=== PATIENT | male | born 1965 | race Caucasian/White ===

== ENCOUNTER 2020-03-11 14:27 | Emergency (ER) | payer SELFPAY ==
[2020-03-11] MEDS ORDERED: ACETAMINOPHEN 325 MG TABLET PO ONE (14:44)
--- NOTE | 2020-03-11 14:46 | ER Document Report ---
HPI - HPI Patient complains to provider of: Fall Time Seen by Provider: 03/11/20 14:38 Onset: Other - 4 days ago Onset/Duration: Persistent Quality of pain: Achy Pain Level: 4 Context: Patient states he slipped on sand in [facility] 4 days ago and fell. Patient states that he injured his right elbow and right shoulder. Patient states initially had right hip pain and right hand pain, although the hip and hand are feeling better at this time. Patient states he did hit his head as well. Patient denies any nausea or vomiting. Patient does not recall any specific lo ss of consciousness. Patient states that the pain worsened today while he was at work limiting his ability to work. Patient does report a history of chronic bilateral shoulder pain and problems with the rotator cuff. Patient reports getting an injection in the shoulder about 4 months ago. Associated Symptoms: denies: Fever, Headache Exacerbated by: Movement Relieved by: Denies Similar symptoms previously: Yes - Right shoulder pain Recently seen / treated by doctor: No - ROS ROS below otherwise negative: Yes Systems Reviewed and Negative: Yes All other systems reviewed and negative - CONSTITUTIONAL Constitutional: DENIES: Fever - NEURO Neurology: DENIES: Weakness - GASTROINTESTINAL Gastrointestinal: DENIES: Nausea - MUSCULOSKELETAL Musculoskeletal: REPORTS: Extremity pain - Right shoulder, right elbow. DENIES: Back Pain, Neck Pain - DERM Skin Color: Normal Skin Problems: None Past Medical History - General Information source: Patient - Social History Smoking Status: Current Every Day Smoker Frequency of alcohol use: None Drug Abuse: None Occupation: Construction Family History: Reviewed & Not Pertinent - Medical History Medical History: Negative Past Surgical History: Reports: Hx Myringotomy Vertical Provider Document - CONSTITUTIONAL Agree With Documented VS: Yes Exam Limitations: No Limitations General Appearance: WD/WN, No Apparent Distress - HEENT HEENT: Atraumatic, Normocephalic - NECK Neck: Normal Inspection, Supple. negative: Lymphadenopathy-Left, Lymphadenopathy-Right - RESPIRATORY Respiratory: Breath Sounds Normal, No Respiratory Distress - CARDIOVASCULAR Cardiovascular: Regular Rate, Regular Rhythm, No Murmur Pulses: Normal: Radial - MUSCULOSKELETAL/EXTREMETIES Musculoskeletal/Extremeties: MAEW, Tender - Tenderness over superior aspect of humeral head, no dislocation or deformity to right shoulder. Notes: Right elbow tenderness over medial and lateral epicondyle, no ecchymosis, no deformity, no swelling - NEURO Level of Consciousness: Awake, Alert, Appropriate Motor/Sensory: No Motor Deficit, No Sensory Deficit - DERM Integumentary: Warm, Dry, No Rash Course - Re-evaluation Re-evalutation: 03/11/20 17:11 Patient without any acute fracture noted on CT scan of the elbow, will immobilize and refer to orthopedics for further management at this time. - Vital Signs Vital signs: Temp Pulse Resp BP Pulse Ox 98.7 F 90 18 125/77 98 03/11/20 14:32 03/11/20 14:32 03/11/20 14:32 03/11/20 14:32 03/11/20 14:32 - Diagnostic Test Radiology reviewed: Image reviewed, Reports reviewed Procedures - Immobilization Right Shoulder Pre-Proc Neuro Vasc Exam: Normal Immobilizer type: Sling Performed by: PCT Post-Proc Neuro Vasc Exam: Normal Alignment checked and good: Yes Discharge - Discharge Clinical Impression: Fall Qualifiers: Encounter type: initial encounter Qualified Code(s): W19.XXXA - Unspecified fall, initial encounter Sprain of right shoulder Qualifiers: Encounter type: initial encounter Shoulder sprain type: unspecified sprain Qualified Code(s): S43.401A - Unspecified sprain of right shoulder joint, initial encounter Sprain of elbow, right Qualifiers: Encounter type: initial encounter Qualified Code(s): S53.401A - Unspecified sprain of right elbow, initial encounter Condition: Stable Disposition: HOME, SELF-CARE Instructions: Acetaminophen, Ice & Elevation ([facility]), Sprain ([facility]), Temporary Sling ([facility]) Additional Instructions: Return immediately for any new or worsening symptoms Followup with your primary care provider, call tomorrow to make a followup appointment Wear sling while awake only for the next 4 to 5 days and then remove. Follow-up with orthopedics for further evaluation, call tomorrow to make a follow-up appointment Prescriptions: Lidocaine [Lidoderm 5% (700 mg) Transdermal Patch] 1 patch TP DAILY PRN #10 adh..patch PRN Reason: Naproxen [Naprosyn 250 Nmg Tablet] 1 tab PO BID #14 tablet Forms: Return to Work Referrals: [facility]) [Provider Group] - Follow up tomorrow
--- NOTE | 2020-03-11 15:51 | RADIOLOGY REPORT (SQ) ---
EXAM DESCRIPTION: ELBOW RIGHT OVER 2 VIEWS IMAGES COMPLETED DATE/TIME: 03/11/2020 3:43 pm REASON FOR STUDY: fall, shoulder, elbow injury COMPARISON: None. NUMBER OF VIEWS: Four views. TECHNIQUE: AP, lateral, and both oblique radiographic images acquired of the right elbow. LIMITATIONS: Nonstandard radiographic positioning, patient could not straighten the arm for AP and o blique images. Lateral film is somewhat rotated FINDINGS: MINERALIZATION: Normal. BONES: No acute displaced fracture next JOINT: There is an elbow joint with elevation of the ventral and dorsal fat pads. Radiographically o ccult fracture may present SOFT TISSUES: Diffuse dorsal soft tissue swelling. No radiopaque foreign body OTHER: No other significant finding. IMPRESSION: There is an elbow joint with elevation of the ventral and dorsal fat pads. Radiographic ally occult fracture may present Consider follow-up CT exam TECHNICAL DOCUMENTATION: JOB ID: [id number] 2010 [employer]- All Rights Reserved Reading location - IP/workstation name: [email or web address]
--- NOTE | 2020-03-11 15:53 | RADIOLOGY REPORT (SQ) ---
EXAM DESCRIPTION: SHOULDER RIGHT 2 OR MORE VIEWS IMAGES COMPLETED DATE/TIME: 03/11/2020 3:43 pm REASON FOR STUDY: fall, shoulder, elbow injury COMPARISON: None. NUMBER OF VIEWS: Three views. TECHNIQUE: Internal rotation, external rotation, and Y view images acquired of the right shoulder. LIMITATIONS: None. FINDINGS: MINERALIZATION: Normal. BONES: No acute fracture. No worrisome bone lesions. JOINTS: No dislocation. VISUALIZED LUNGS AND RIBS: No pneumothorax. No rib fracture. SOFT TISSUES: No radiopaque foreign body. OTHER: No other significant finding. IMPRESSION: NEGATIVE STUDY OF THE RIGHT SHOULDER. NO RADIOGRAPHIC EVIDENCE OF ACUTE INJURY. TECHNICAL DOCUMENTATION: JOB ID: [id number] 2010 [email or web address]- All Rights Reserved Reading location - IP/workstation name: [email or web address]
--- NOTE | 2020-03-11 17:05 | RADIOLOGY REPORT (SQ) ---
EXAM DESCRIPTION: CT RT UPPER EXTREMITY WITHOUT IMAGES COMPLETED DATE/TIME: 03/11/2020 4:42 pm REASON FOR STUDY: fall r elbow injury COMPARISON: None. EXAM PARAMETERS: TECHNIQUE:Axial imaging performed through the right level with reformatted coronal and sagittal imaging windowed for bone and soft tissues. Images saved to PACS. 3D IMAGING: Were 3D images as MIP, SSD, or volume rendering performed at the work station? No All CT scanners at this facility use dose modulation, iterative reconstruction, and/or weight based d osing when appropriate to reduce radiation dose to as low as reasonably achievable (ALARA). [facility]: Dose Right [facility]: SureCare [facility]: Dose Right [facility]: Teradose 4D [facility]: Smart AMS-Qi RADIATION DOSE: CT Rad equipment meets quality standard of care and radiation dose reduction techniqu es were employed. CTDIvol: 4.7 mGy. DLP: 150 mGy-cm. mGy. LIMITATIONS: No FINDINGS: SOFT TISSUES: No obvious swelling or foreign body. BONES: No acute fracture at this location. Degenerative joint changes is seen in the radiohumeral bernadette int. Subchondral cysts are present. MINERALIZATION: Normal. OTHER: No other significant finding. IMPRESSION: Degenerative joint disease. No acute fracture or dislocation. TECHNICAL DOCUMENTATION: JOB ID: [id number] [facility] [id number]: Final reports with documentation of one or more dose reduction techniques (e.g., Automate d exposure control, adjustment of the mA and/or kV according to patient size, use of iterative recons truction technique) 2010 [employer]- All Rights Reserved Reading location - IP/workstation name: [email or web address]
[2020-03-11 17:28] VITALS: BP 137/84
== END 2020-03-11 17:28 | disposition home or self-care (01) ==
LOC: ER 14:27
DX: S43.401A Unspecified sprain of right shoulder joint, initial encounter (principal); S53.401A Unspecified sprain of right elbow, initial encounter; W18.30XA Fall on same level, unspecified, initial encounter; F17.200 Nicotine dependence, unspecified, uncomplicated
CPT/HCPCS: 99284